=== PATIENT | female | born 1990 | race African-American/Black ===

== ENCOUNTER 2025-01-31 19:02 | Emergency (ER) | payer MEDICAID ==
[~2025-01-31] VITALS: Ht 157.5 cm; Wt 136.0 kg
[~2025-01-31 19:02] MED LIST: PNV1TABL76 MT
[2025-01-31 19:08] VITALS: TEMP 36.8; O2SAT 99
[2025-01-31] MEDS ORDERED: KETOROLAC 15MG/ML VIAL IM ONE (20:15)
[2025-01-31] MEDS ORDERED: NAPR-1176 MT (22:17)
[2025-01-31] MEDS ORDERED: LIDO-53 TP (22:17)
[2025-01-31] MEDS: KETOROLAC 15MG/ML VIAL IM NR (22:26)
[2025-01-31] MEDS: LIDOCAINE 5% PATCH TOP SCH (22:26)
[2025-01-31 22:31] VITALS: BP 128/81; PULSE 67; RESP 18; O2SAT 100
== END 2025-01-31 22:34 | disposition home or self-care (01) ==
LOC: ER 19:10
DX: S80.01XA Contusion of right knee, initial encounter (principal); M54.50 Low back pain, unspecified; V49.9XXA Car occupant (driver) (passenger) injured in unspecified traffic accident, initial encounter; Y93.89 Activity, other specified; Y92.410 Unspecified street and highway as the place of occurrence of the external cause; Y99.8 Other external cause status
CPT/HCPCS: 99283; 81025; 73562; 96372; J1885

== ENCOUNTER 2025-03-11 13:00 | Emergency (ER) | payer MEDICAID, OTHER ==
[~2025-03-11] VITALS: Ht 162.6 cm; Wt 114.0 kg
[~2025-03-11 13:00] MED LIST changes: +LIDO-53 TP; +NAPR-1176 MT
[2025-03-11 13:06] VITALS: O2SAT 99
[2025-03-11] MEDS: ACETAMINOPHEN 500MG TABLET PO ONE (15:07)
[2025-03-11] MEDS ORDERED: ACET-2708 MT (15:58)
[2025-03-11] MEDS ORDERED: IBUP-2030 MT (15:58)
[2025-03-11] MEDS: KETOROLAC 15MG/ML VIAL IM ONE (16:25)
[2025-03-11 16:56] VITALS: BP 165/75; PULSE 81; RESP 16; TEMP 36.7; O2SAT 99
== END 2025-03-11 16:59 | disposition home or self-care (01) ==
LOC: ER 13:01
DX: M25.561 Pain in right knee (principal); M25.572 Pain in left ankle and joints of left foot; M17.11 Unilateral primary osteoarthritis, right knee; Z79.1 Long term (current) use of non-steroidal anti-inflammatories (NSAID); Z79.899 Other long term (current) drug therapy
CPT/HCPCS: 81025; 73562; 96372; 99283; J1885; A6449; Z7610